=== PATIENT | male | born 1965 | race Caucasian/White ===

== ENCOUNTER 2021-03-01 08:29 | Emergency (ER) | payer OTHER ==
[2021-03-01 08:54] VITALS: BMI 28.1
[2021-03-01 09:48] LABS: BASO % 0.3 % (0-2.0); EOS % 4.6 % (0-4.5); HEMATOCRIT 44.1 % (35.4-49); HEMOGLOBIN 14.5 GM/dL (11.7-16.9); LYMPH % 32.6 % (8-40); MCHC 32.8 g/dl (32.0-35.9); MEAN CELL VOLUME 88.4 fl (80-96); MEAN PLT VOLUME 9.1 fl (7.5-11.1); MONO % 14.9 % (3.8-10.2); NEUT % 47.6 % (42.8-82.8); PLATELET COUNT 248 K/MM3 (134-434); RBC 4.99 M/mm3 (4.00-5.60); RDW 12.9 % (11.9-15.9); WHITE BLOOD COUNT 4.3 K/mm3 (4.0-10.0)
[2021-03-01 10:14] LABS: CHLORIDE 102 mmol/L (98-107); SODIUM 136 mmol/L (136-145)
[2021-03-01 10:17] LABS: ALBUMIN 3.9 g/dl (3.4-5.0); ANION GAP 4 MMOL/L (8-16); BLOOD UREA NITROGEN 11.2 mg/dL (7-18); CALCIUM 9.2 mg/dL (8.5-10.1); CO2 30 mmol/L (21-32); GLUCOSE,RANDOM 101 mg/dL (74-106)
[2021-03-01 10:19] LABS: PHOSPHOROUS 3.2 mg/dL (2.5-4.9)
[2021-03-01 10:20] LABS: SGPT/ALT 38 U/L (13-61)
[2021-03-01 10:21] LABS: CREATININE 1.1 mg/dL (0.55-1.3); SGOT/AST 22 U/L (15-37)
[2021-03-01 10:22] LABS: BILIRUBIN,TOTAL 0.4 mg/dL (0.2-1); TOT PROT 8.2 g/dl (6.4-8.2)
[2021-03-01 10:23] LABS: ALK PHOS 160 U/L (45-117)
[2021-03-01 11:10] VITALS: BP 149/73; PULSE 66; TEMP 97.6
== END 2021-03-01 11:05 | disposition home or self-care (01) ==
LOC: JER 08:29
DX: R42 Dizziness and giddiness (principal); I10 Essential (primary) hypertension
CPT/HCPCS: 36415; 70450-TC; 71046-TC-FY; 80053; 80061; 82550; 82553; 82962; 83721; 83735; 84100; 84443; 84484; 85025; 85730; 93005; 93010; 99285-25